=== PATIENT | female | born 1995 | race Caucasian/White ===

== ENCOUNTER 2019-01-21 01:47 | Inpatient (IN) | payer BC, OTHER ==
[~2019-01-21] VITALS: Ht 149.9 cm; Wt 42.7 kg
[2019-01-21] MEDS ORDERED: MORPHINE SULFATE 4 MG/ML, 1ML ONE ×2 (02:10→02:51)
[2019-01-21] MEDS ORDERED: ONDANSETRON 2MG/ML, 2ML ONE ×3 (02:10→13:49)
[2019-01-21] MEDS: MORPHINE SULFATE 4 MG/ML, 1ML IVPush PRN ×2 (02:13→02:53)
--- NOTE | 2019-01-21 02:19 | NUR ---
PT HERE FOR RIGHT LEG PAIN. PT WAS DANCING AND WAS DROPPED ON RIGHT HIP. PT IS UNABLE TO MOVE LEG BUT CAN WIGGLE TOES. CMS INTACT. PIV PLACED. PT MEDICATED FOR NAUSEA AND PAIN. LAB AT BEDSIDE. VSS. CALL LIGHT IN REACH
[2019-01-21] MEDS ORDERED: SODIUM CHLORIDE FLUSH 10ML SYR IVF ONE (02:30)
[2019-01-21] MEDS ORDERED: ONDANSETRON 2MG/ML, 2ML IVPush ONE (02:30)
[2019-01-21] MEDS ORDERED: KETAMINE 10 MG/ML, 20ML IV STA (02:53)
[2019-01-21] MEDS ORDERED: KETAMINE 10 MG/ML, 20ML ONE (03:00)
[2019-01-21] MEDS ORDERED: SODIUM CHLORIDE 0.9% 1,000ML IVBOLUS ONE (03:00)
--- NOTE | 2019-01-21 03:00 | NUR ---
PT REMEDICATED FOR PAIN. PT WAS UNABLE TO TOLERATE XRAY DUE TO PAIN. MD ORDERED KETAMINE TO FINISH XRAYS. VSS
[2019-01-21] MEDS ORDERED: SODIUM CHLORIDE 0.9% 1,000 ML IV ONE (03:03)
[2019-01-21 03:05] LABS: BASOPHILS # (AUTO) 0.05 x10^3/uL (0-0.1); BASOPHILS % (AUTO) 0 % (0-1); EOSINOPHILS # (AUTO) 0.08 x10^3/uL (0-0.4); EOSINOPHILS % (AUTO) 1 % (1-7); LYMPHOCYTES # (AUTO) 4.47 x10^3/uL (1-3.4); LYMPHOCYTES % (AUTO) 28 % (22-44); MD NO; MEAN CORPUSCULAR HEMOGLOBIN 31.7 pg (27.0-34.8); MEAN CORPUSCULAR HGB CONC 33.3 g/dL (32.4-35.8); MEAN CORPUSCULAR VOLUME 95.1 fL (80-100); MEAN PLATELET VOLUME 10.1 fL (7.4-10.4); MONOCYTES # (AUTO) 0.88 x10^3/uL (0.2-0.8); MONOCYTES % (AUTO) 6 % (2-9); NEUTROPHILS # (AUTO) 10.61 x10^3/uL (1.8-6.8); NEUTROPHILS % (AUTO) 66 % (42-75); PLATELET COUNT 198 x10^3/uL (130-400); RED BLOOD COUNT 4.56 x10^6/uL (3.82-5.3); RED CELL DISTRIBUTION WIDTH 12.3 % (9.6-15.2)
[2019-01-21 03:12] LABS: ALBUMIN 4.2 g/dL (3.4-5.0); ANION GAP 10 mmol/L (5-15); CALCIUM 8.9 mg/dL (8.5-10.1); CHLORIDE 112 mmol/L (98-107); CREATININE 0.98 mg/dL (0.55-1.02)
[2019-01-21] MEDS ORDERED: HYDROmorphone 2 MG/ML, 1ML IVPush PRN ×3 (03:30→13:00)
[2019-01-21] MEDS ORDERED: ONDANSETRON 2MG/ML, 2ML IVPush PRN (03:30)
[2019-01-21] MEDS ORDERED: PROMETHAZINE 25 MG/ML, 1ML IM PRN (03:30)
[2019-01-21] MEDS ORDERED: MORPHINE SULFATE 4 MG/ML, 1ML IVPush PRN (03:30)
[2019-01-21] MEDS ORDERED: SODIUM CHLORIDE FLUSH 10ML SYR IVF PRN (03:30)
--- NOTE | 2019-01-21 04:00 | NUR ---
PT TOLERATED XRAY AFTER MEDICATION. PT RESPONDING TO VERBAL STIMULI AND COMPLAINED OF PAIN DURING XRAY. VSS. PT FEELING NAUSEOUS. PA WILL ORDER ZOFRAN FOR NAUSEA. PT SPEAKING WITH [facility] ABOUT INCIDENT.
[2019-01-21] MEDS ORDERED: ONDANSETRON 2MG/ML, 2ML IVPush STA (04:10)
--- NOTE | 2019-01-21 04:23 | NUR ---
PT MEDICATED FOR NAUSEA. VSS. FRIEND AT BEDSIDE.
--- NOTE | 2019-01-21 04:37 | NUR ---
PT [id number] ANSWERING QUESTIONS AND IS BEING TRANSPORTED TO FLOOR. VSS. UPDATED ON PTS CONDITION
[2019-01-21] MEDS: HYDROmorphone 2 MG/ML, 1ML IVPush PRN ×4 (08:16→22:03)
[2019-01-21 08:20] VITALS: BP 115/56
[2019-01-21] MEDS: ONDANSETRON 2MG/ML, 2ML IVPush PRN ×2 (10:53→23:21)
[2019-01-21] MEDS ORDERED: FENTANYL PF 250 MCG/5ML ONE (12:19)
[2019-01-21] MEDS ORDERED: MIDAZOLAM 1 MG/ML, 2ML ONE (12:19)
[2019-01-21] MEDS ORDERED: ROCURONIUM 10MG/ML,5ML ONE (12:33)
[2019-01-21] MEDS ORDERED: PROPOFOL 50 ML ONE ×3 (12:53→14:41)
[2019-01-21] MEDS ORDERED: MIDAZOLAM 1 MG/ML, 2ML IV PRN (13:00)
[2019-01-21] MEDS ORDERED: ONDANSETRON ODT 8 MG PO PRN (13:00)
[2019-01-21] MEDS ORDERED: DIPHENHYDRAMINE 50 MG/ML, 1ML IVPush PRN (13:00)
[2019-01-21] MEDS ORDERED: DIAZEPAM 5 MG/ML, 2ML IVPush PRN (13:00)
[2019-01-21] MEDS ORDERED: PROMETHAZINE 25 MG/ML, 1ML IV PRN (13:00)
[2019-01-21] MEDS ORDERED: ONDANSETRON 2MG/ML, 2ML IV PRN (13:00)
[2019-01-21] MEDS ORDERED: OXYcodone 5 MG/5 ML ORAL.SOL UDC PO PRN (13:00)
[2019-01-21] MEDS ORDERED: EPHEDRINE 50 MG/ML, 1ML IM PRN (13:00)
[2019-01-21] MEDS ORDERED: EPHEDRINE 50 MG/ML, 1ML IVPush PRN (13:00)
[2019-01-21] MEDS ORDERED: MEPERIDINE/PF 25MG/0.5ML IVPush PRN (13:00)
[2019-01-21] MEDS ORDERED: DEXAMETHASONE 4 MG/ML, 1ML ONE (13:49)
[2019-01-21] MEDS ORDERED: CEFAZOLIN 1,000 MG ONE (13:49)
[2019-01-21] MEDS ORDERED: SUCCINYLCHOLINE 20 MG/ML, 10ML ONE (13:50)
[2019-01-21] MEDS ORDERED: OXYcodone 5 MG/5 ML ORAL.SOL UDC ONE (15:40)
[2019-01-21] MEDS ORDERED: MEPERIDINE/PF 25MG/ML,1ML ONE (15:40)
[2019-01-21] MEDS ORDERED: FENTANYL PF 100 MCG/2ML ONE (15:53)
[2019-01-21] MEDS ORDERED: MAGNESIUM HYDROXIDE 8%, 30ML UDC PO PRN (16:00)
[2019-01-21] MEDS ORDERED: BISACODYL 10 MG SUPP PR PRN (16:00)
[2019-01-21] MEDS ORDERED: OXYcodone/APAP 5/325MG TABLET PO PRN (16:00)
[2019-01-21] MEDS: FENTANYL PF 100 MCG/2ML IV PRN ×3 (16:00→16:30)
[2019-01-21] MEDS ORDERED: ALUMINUM/MAG/SIMETHICONE 30 ML UDC PO PRN (16:00)
[2019-01-21] MEDS: ENOXAPARIN 40 MG/0.4 ML SQ SCH (16:00)
[2019-01-21] MEDS ORDERED: SENNA/DOCUSATE TABLET PO PRN (16:00)
[2019-01-21] MEDS ORDERED: ACETAMINOPHEN 325 MG TABLET PO PRN (16:00)
[2019-01-21 20:21] VITALS: BP 116/67
[2019-01-21] MEDS: DOCUSATE 100 MG CAPSULE PO SCH (20:58)
[2019-01-21] MEDS: CEFAZOLIN PMX 1GM/50ML 50 ML IVPB SCH (20:59)
[2019-01-22 00:19] VITALS: BP 108/65
[2019-01-22] MEDS: HYDROcodone/APAP 5/325 TABLET PO PRN ×4 (04:48→19:52)
[2019-01-22] MEDS: CEFAZOLIN PMX 1GM/50ML 50 ML IVPB SCH (04:48)
[2019-01-22 07:34] VITALS: BP 96/48
[2019-01-22] MEDS: DOCUSATE 100 MG CAPSULE PO SCH ×2 (08:57→19:49)
[2019-01-22 12:47] VITALS: BP 102/65
[2019-01-22] MEDS: ENOXAPARIN 40 MG/0.4 ML SQ SCH (16:08)
[2019-01-22 20:44] VITALS: BP 114/69
[2019-01-23] MEDS: HYDROcodone/APAP 5/325 TABLET PO PRN ×5 (01:18→23:03)
[2019-01-23 04:24] VITALS: BP 117/75
[2019-01-23 06:49] VITALS: BP 120/74
[2019-01-23] MEDS: DOCUSATE 100 MG CAPSULE PO SCH ×2 (08:58→20:37)
[2019-01-23 14:00] VITALS: BP 123/54
[2019-01-23] MEDS: ENOXAPARIN 40 MG/0.4 ML SQ SCH (16:33)
[2019-01-23 18:47] VITALS: BP 127/69
[2019-01-24 03:01] VITALS: BP 123/80
[2019-01-24] MEDS: HYDROcodone/APAP 5/325 TABLET PO PRN ×2 (05:56→10:14)
[2019-01-24] MEDS ORDERED: HYDR-3622 PO ×3 (06:17→06:24)
[2019-01-24] MEDS ORDERED: ENOX40SY4 SQ ×2 (06:20→06:24)
[2019-01-24] MEDS ORDERED: DOCU-131 PO ×2 (06:22→06:23)
[2019-01-24 07:30] VITALS: BP 105/66
[2019-01-24] MEDS ORDERED: HYDR-3240 PO (08:28)
[2019-01-24] MEDS: DOCUSATE 100 MG CAPSULE PO SCH (08:34)
== END 2019-01-24 10:52 | disposition home or self-care (01) | DRG 482 ==
LOC: ED 04:43 → EDIP 04:44 → 3NE 04:47 → 4NOR 16:51 → DCLOUNGE 01-24 10:38
PROVIDERS: ADMIT Orthopaedic Surgery; ATTEND Orthopaedic Surgery
PROC: 0QS604Z Reposition Right Upper Femur with Internal Fixation Device, Open Approach (ICD-10-PCS; principal; 2019-01-21 15:45)
DX: S72.011A Unspecified intracapsular fracture of right femur, initial encounter for closed fracture (principal); W17.89XA Other fall from one level to another, initial encounter; Y93.89 Activity, other specified; Y92.89 Other specified places as the place of occurrence of the external cause; Y99.8 Other external cause status; G89.11 Acute pain due to trauma; F17.210 Nicotine dependence, cigarettes, uncomplicated; S82.62XA Displaced fracture of lateral malleolus of left fibula, initial encounter for closed fracture; S82.61XA Displaced fracture of lateral malleolus of right fibula, initial encounter for closed fracture
CPT/HCPCS: 36415; 72100; 76000; 80048; 82040; 84703; 85025; 96374; 96375; 97161; 99285; C1713; G0378; J0690; J1100; J1170; J1650; J2175; J2250; J2405; J2704; J3010; J0330; J2270; J7030